=== PATIENT | male | born 1955 | race African-American/Black ===

== ENCOUNTER 2021-12-27 09:49 | Inpatient (IN) ==
[2021-12-27] MEDS ORDERED: niCARdipine INJ 50 MG in SODIUM CHLORIDE 0.9% 230 ML IV PRN (10:44)
[2021-12-27] MEDS ORDERED: FUROSEMIDE 100 MG/10 ML VIAL IV STA (10:51)
[2021-12-27 11:16] LABS: Basophils # 0.1 10*3/uL (0.0-0.2); Basophils % 0.5 % (0.0-0.8); Eosinophils # 0.3 10*3/uL (0.0-0.87); Eosinophils % 2.6 % (0.00-10.9); Hematocrit 46.3 VOL% (42.0-52.0); Hemoglobin 15.4 GM/DL (14.0-18.0); Immature Granulocytes % 0.4 %; Immature Granulocytes Absolute 0.04 #; Lymphocytes # 2.5 10*3/uL (1.4-4.0); Lymphocytes % 24.5 % (21.2-54.2); Mean Corpuscular HGB Conc 33.3 GM/DL (32-36); Mean Corpuscular Volume 93.3 FL (87-102); Mean Platelet Volume 11.6 FL (9.6-12.0); Monocytes % 9.7 % (1.7-12.7); Neutrophils % 62.3 % (38.7-73.9); Platelet Count 234 T/CUMM (130-400); Red Blood Count 4.96 MC/CUMM (3.8-5.5); Red Cell Distribution Width 12.3 % (9.3-17.3); White Blood Count 10.2 T/CUMM (4-12)
[2021-12-27 11:41] LABS: Alanine Aminotransferase 40 U/L (16-61); Albumin 3.1 G/DL (3.4-5.0); Alkaline Phosphatase 98 U/L (45-117); Aspartate Amino Transferase 40 U/L (0-37); Blood Urea Nitrogen 10 MG/DL (7-18); Carbon Dioxide 26 MMOL/L (21-32); Chloride 106 MMOL/L (98-107); Glucose 266 MG/DL (74-106); Osmolality,Calculated 286.4 MOS/KG (273-304); Potassium 3.4 MMOL/L (3.5-5.1); Sodium 140 MMOL/L (136-145); Total Protein 8.7 G/DL (6.4-8.2)
[2021-12-27] MEDS ORDERED: ALBUTEROL 2.5 MG/3 ML NEB RESP TX PRN (12:10)
[2021-12-27] MEDS ORDERED: GLUCAGON 1 MG VIAL IM PRN (13:45)
[2021-12-27] MEDS ORDERED: ONDANSETRON 4 MG/2 ML VIAL IV PRN (13:45)
[2021-12-27] MEDS ORDERED: guaiFENesin/DM ER 600-30 MG TABLET PO PRN (13:45)
[2021-12-27] MEDS ORDERED: DEXTROSE 10% 250 ML BAG IV PRN (13:45)
[2021-12-27] MEDS ORDERED: hydrALAZINE 20 MG/1 ML VIAL IV PRN (13:45)
[2021-12-27] MEDS ORDERED: POTASSIUM CHLORIDE 20 MEQ TABLET PO STA (13:50)
[2021-12-27] MEDS ORDERED: SODIUM CHLORIDE 0.9% 1,000 ML IV SCH (14:00)
[2021-12-27] MEDS ORDERED: cefTRIAXone 1,000 MG in SODIUM CHLORIDE 0.9% 100 ML IV STA (14:01)
[2021-12-27] MEDS ORDERED: AZITHROMYCIN INJ 500 MG in SODIUM CHLORIDE 0.9% 250 ML IV STA (14:01)
[2021-12-27] MEDS: amLODIPine 5 MG TABLET PO SCH (16:37)
[2021-12-27] MEDS: lisinopriL 20 MG TABLET PO SCH (16:37)
[2021-12-27] MEDS: HEPARIN 5,000 UNIT/1 ML VIAL SUBCUT SCH (16:38)
[2021-12-27] MEDS: INSULIN LISPRO 100 UNIT/ML SUBCUT SCH ×2 (18:30→21:34)
[2021-12-28] MEDS: HEPARIN 5,000 UNIT/1 ML VIAL SUBCUT SCH ×2 (02:29→13:24)
[2021-12-28 04:36] LABS: Basophils % 0.5 % (0.0-0.8); Eosinophils # 0.2 10*3/uL (0.0-0.87); Eosinophils % 2.4 % (0.00-10.9); Hematocrit 40.4 VOL% (42.0-52.0); Hemoglobin 13.1 GM/DL (14.0-18.0); Immature Granulocytes % 0.5 %; Immature Granulocytes Absolute 0.04 #; Lymphocytes # 1.6 10*3/uL (1.4-4.0); Mean Corpuscular HGB Conc 32.4 GM/DL (32-36); Mean Corpuscular Volume 95.3 FL (87-102); Mean Platelet Volume 11.8 FL (9.6-12.0); Monocytes # 0.9 10*3/uL (0.11-0.8); Monocytes % 11.9 % (1.7-12.7); Neutrophils % 63.7 % (38.7-73.9); Platelet Count 196 T/CUMM (130-400); Red Blood Count 4.24 MC/CUMM (3.8-5.5); Red Cell Distribution Width 12.3 % (9.3-17.3); White Blood Count 7.8 T/CUMM (4-12)
[2021-12-28 05:07] LABS: Albumin 2.4 G/DL (3.4-5.0); Bilirubin,Total 0.4 MG/DL (0.20-1.00); Calcium 8.5 MG/DL (8.5-10.1); Potassium 3.3 MMOL/L (3.5-5.1); Total Protein 7.1 G/DL (6.4-8.2)
[2021-12-28] MEDS ORDERED: MAGNESIUM SULF RIDER 2 GM/50 ML PREMIX IV PRN (08:03)
[2021-12-28] MEDS ORDERED: MAGNESIUM SULF RIDER 4 GM/100 ML PREMIX IV PRN (08:03)
[2021-12-28] MEDS: INSULIN LISPRO 100 UNIT/ML SUBCUT SCH ×4 (08:45→22:08)
[2021-12-28] MEDS: DAPAGLIFLOZIN 10 MG TABLET PO SCH (09:50)
[2021-12-28] MEDS: lisinopriL 20 MG TABLET PO SCH (09:50)
[2021-12-28] MEDS: amLODIPine 5 MG TABLET PO SCH (09:50)
[2021-12-28] MEDS: PANTOPRAZOLE 40 MG TABLET PO SCH (09:50)
[2021-12-28] MEDS: SPIRONOLACTONE 25 MG TABLET PO SCH (12:02)
[2021-12-28] MEDS: METOPROLOL SUCCINATE XL 25 MG TABLET PO SCH (12:03)
[2021-12-28] MEDS: POTASSIUM CHLORIDE 20 MEQ TABLET PO PRN ×2 (18:24→22:08)
[2021-12-28] MEDS ORDERED: ROSUVASTATIN 10 MG TABLET PO SCH (21:00)
[2021-12-29] MEDS: HEPARIN 5,000 UNIT/1 ML VIAL SUBCUT SCH (01:43)
[2021-12-29 04:10] LABS: Basophils % 0.5 % (0.0-0.8); Eosinophils # 0.3 10*3/uL (0.0-0.87); Eosinophils % 3.5 % (0.00-10.9); Hematocrit 40.3 VOL% (42.0-52.0); Hemoglobin 13.1 GM/DL (14.0-18.0); Immature Granulocytes % 0.2 %; Immature Granulocytes Absolute 0.02 #; Lymphocytes # 2.3 10*3/uL (1.4-4.0); Lymphocytes % 26.8 % (21.2-54.2); Mean Corpuscular HGB Conc 32.5 GM/DL (32-36); Mean Corpuscular Volume 95.5 FL (87-102); Mean Platelet Volume 11.9 FL (9.6-12.0); Platelet Count 200 T/CUMM (130-400); Red Blood Count 4.22 MC/CUMM (3.8-5.5); Red Cell Distribution Width 12.2 % (9.3-17.3); White Blood Count 8.7 T/CUMM (4-12)
[2021-12-29 04:41] LABS: Calcium 8.2 MG/DL (8.5-10.1); Osmolality,Calculated 280.5 MOS/KG (273-304); Potassium 3.7 MMOL/L (3.5-5.1)
[2021-12-29] MEDS: METOPROLOL SUCCINATE XL 25 MG TABLET PO SCH (09:51)
[2021-12-29] MEDS: amLODIPine 5 MG TABLET PO SCH (09:51)
[2021-12-29] MEDS: INSULIN LISPRO 100 UNIT/ML SUBCUT SCH (09:51)
[2021-12-29] MEDS: PANTOPRAZOLE 40 MG TABLET PO SCH (09:51)
[2021-12-29] MEDS: lisinopriL 20 MG TABLET PO SCH (09:51)
[2021-12-29] MEDS: SPIRONOLACTONE 25 MG TABLET PO SCH (09:52)
[2021-12-29] MEDS: DAPAGLIFLOZIN 10 MG TABLET PO SCH (09:52)
[2021-12-29 12:37] VITALS: BP 178/99
[2021-12-30] MEDS ORDERED: METOPROLOL SUCCINATE XL 50 MG TABLET PO SCH (09:00)
== END 2021-12-29 14:14 | disposition home or self-care (01) | DRG 281 ==
LOC: N.ED 09:49 → SUATTDRO 13:45 → N.EDINP 13:45 → N.TELES 18:17
PROVIDERS: ADMIT Internal Medicine; ATTEND Internal Medicine Geriatric Medicine